=== PATIENT | female | born 1995 | race Caucasian/White ===

== ENCOUNTER → 2019-07-18 15:39 | Outpatient (CLI) | payer OTHER, MEDICAID, SELFPAY ==
[2019-07-18 16:04] LABS: Appearance Urine UA CLEAR; Bilirubin Urine UA NEGATIVE (NEGATIVE); Color Urine UA YELLOW; Glucose Urine UA NEGATIVE (Negative); Ketones Urine UA NEGATIVE (NEGATIVE); Leukocyte Esterase Urine UA NEGATIVE (NEGATIVE); Nitrite Urine UA NEGATIVE (Negative); Occult Blood Urine UA NEGATIVE (Negative); Protein Urine UA NEGATIVE (Negative); Urobilinogen Urine UA 0.2 E.U./dL (0.2)
[2019-07-18 16:04] LABS: Add Manual Diff / Slide Review NO; Basophils Absolute Auto 100 /uL (0-100); Basophils Percent Auto 0.4 % (0-2); Eosinophils Absolute Auto 100 /uL (0-450); Eosinophils Percent Auto 0.8 % (2-4); Hematocrit 37.9 % (36-46); Hemoglobin 12.9 g/dL (12.0-16.0); Lymphocytes Absolute Auto 3000 /uL (1100-4500); Lymphocytes Percent Auto 20.1 % (25-40); Mean Corpuscular Hemoglobin 29.8 PG (26-34); Mean Corpuscular Volume 87.5 fL (80-100); Monocytes Absolute Auto 1100 /uL (0-900); Monocytes Percent Auto 7.4 % (3-14); Neutrophils Absolute Auto 10700 /uL (1500-7000); Neutrophils Percent Auto 71.3 % (50-75); Platelet Count 313 X10^3/uL (150-400); Red Blood Cell Count 4.33 X10^6/uL (4.0-5.2); Red Cell Distribution Width 12.9 % (11.6-14.8); White Blood Cell Count 14.9 X10^3/uL (4.5-11.0)
[2019-07-18 17:11] LABS: Hepatitis B Surface Antigen NEGATIVE s/c (NEGATIVE); Rubella Antibody IgG 15.1 IU/mL (>15)
[2019-07-18 17:25] LABS: HIV 1 & 2 Ab/Ag 4th Gen Combo NEGATIVE (NEGATIVE); Hep C Virus Ab w/Reflex Quant NEGATIVE s/c (NEGATIVE)
[2019-07-20 20:05] LABS: RPR Screen Nonreactive (Nonreactive)
[2019-07-27 14:17] LABS: Varicella IgG Antibody < 135.00 Index (< 135.00)
== END ==
PROVIDERS: Visit Provider Specialist
DX: Z34.01 Encounter for supervision of normal first pregnancy, first trimester (principal)
CPT/HCPCS: 36415; 80055; 81003; 86787; 86803; 86850; 86900; 86901; 87086; 87389

== ENCOUNTER → 2019-09-23 09:13 | Outpatient (CLI) | payer OTHER, MEDICAID, SELFPAY ==
[2019-09-27 19:57] LABS: AFP, Serum 40.1 ng/mL; Brief History NTD NG; Calc Gestational Age 18.6; Cigarette Smoker N; Donated Egg N; Donor Egg Age N; Estriol, Free 1.42 ng/mL; Inhibin A, Dimeric 138 pg/mL; Inhibin A, MoM 0.83; Maternal Weight 158 lbs; Number of Fetuses 1; Previous Pregnancy Down Syndro N; hCG, MoM 1.32; hCG, Serum 28.6 IU/mL
== END ==
PROVIDERS: Visit Provider Specialist
DX: Z34.82 Encounter for supervision of other normal pregnancy, second trimester (principal); Z3A.18 18 weeks gestation of pregnancy
CPT/HCPCS: 82105; 82677; 84702; 86336

== ENCOUNTER → 2019-10-03 09:26 | Outpatient (CLI) | payer OTHER, MEDICAID, SELFPAY ==
--- NOTE | 2019-10-03 09:28 | DI.US.S_ITS ---
PROCEDURE: US OB >= 14 WEEKS FETUS INDICATIONS: 20 WEEK AMATOMY SCAN OUTSIDE/PRIOR DATING DATA: Last menstrual period (LMP): 05/16/19. LMP-based estimated date of delivery (WILLEM): 02/20/20. First dating scan (date and location): 07/18/19. Estimated date of delivery (WILLEM) from first dating scan: 02/26/20. TECHNIQUE: Real-time scanning was performed of the fetus, with image documentation and biometric measurements. Endovaginal scanning: No COMPARISON: [facility] [employer] [facility], , OB >= 14 WEEKS FETUS, 09/23/2019, 8:49. FINDINGS: General: A single living intrauterine gestation is present. Presentation: Breech. Placenta: Placental position is anterior, without previa. Amniotic fluid index: 17.6 cm, normal range is 5-24 cm. heart rate: 145 beats per minute. Maternal cervical canal: 4.7 cm long. Normal lower limit is 2.5 cm. biometrics: Biparietal diameter: 18 weeks 4 days Head circumference: 18 weeks 5 days Abdominal circumference: 19 weeks 2 days Femur length: 19 weeks 2 days Estimated gestational age from initial scan: 19 weeks 1 day Composite gestational age from present scan: 18 weeks 6 days Estimated weight and percentile: 277 g; 46 percentile Measurement variability for biometric dating: +/- 7 days from 14 weeks to 15 weeks 6 days gestation, +/- 10 days from 16 weeks to 21 weeks 6 days gestation, +/- 2 weeks from 22 weeks to 27 weeks 6 days gestation, +/- 3 weeks for 28 weeks gestation or later. weight reference: 4500 g or EFW >90/95% is considered macrosomia or large for gestational age. EFW <10% is small for gestational age. EFW 5% or less is considered intra-uterine growth restriction. Anatomic survey: Neuro: Ventricles are non-dilated at less than 10 mm. Cisterna magna is normal at 3-11 mm. Cerebellum is normal in size and morphology. Nuchal skin fold: Normal at less than 6 mm between 14-21 weeks gestational age. Face: Nose and lips, facial profile are normal. Spine: No evidence for spina bifida. Heart: 4-chambered heart is present, with normal ventricular outflow tracts. Diaphragm: Diaphragm is intact. Stomach: Left-sided stomach is present. Kidneys: No hydronephrosis. Normal is less than 5 mm in 2nd trimester, less than 7 mm in 3rd trimester. Cord: 3-vessel cord has orthotopic insertion. Bladder: Normal in size. Extremities: All 4 extremities identified. IMPRESSION: 1. Single living IUP redemonstrated and interval growth is normal. 2. Normal anatomic survey. Dictated by: Fantasma Koroma [facility] Interpreted: Benita Douglass MD on 10/03/2019 at 15:55 Approved by: Benita Douglass MD, PhD on 10/03/2019 at 17:18
== END ==
PROVIDERS: Referring Provider Specialist; Visit Provider Specialist
DX: Z34.82 Encounter for supervision of other normal pregnancy, second trimester (principal); Z3A.18 18 weeks gestation of pregnancy
CPT/HCPCS: 76811

== ENCOUNTER → 2019-11-16 10:40 | Outpatient (CLI) | payer OTHER, MEDICAID, SELFPAY ==
[2019-11-16 11:10] LABS: Hematocrit 39.5 % (36-46); Hemoglobin 13.3 g/dL (12.0-16.0)
== END ==
PROVIDERS: Referring Provider Specialist; Visit Provider Specialist
DX: O26.899 Other specified pregnancy related conditions, unspecified trimester (principal); Z67.91 Unspecified blood type, Rh negative
CPT/HCPCS: 36415; 85014; 85018; 86850

== ENCOUNTER → 2019-12-28 08:11 | Outpatient (CLI) | payer OTHER, MEDICAID, SELFPAY ==
[2019-12-28 11:00] LABS: GTT (PREG) 1 Hour PP 50gm Dose 124 mg/dL (76-139)
== END ==
PROVIDERS: Referring Provider Specialist; Visit Provider Specialist
DX: Z34.82 Encounter for supervision of other normal pregnancy, second trimester (principal)
CPT/HCPCS: 36415; 82950

== ENCOUNTER → 2020-01-27 08:11 | Outpatient (CLI) | payer OTHER, MEDICAID, SELFPAY ==
[2020-01-28 08:40] LABS: Strep Grp B PCR POS for Grp B Strep
== END ==
PROVIDERS: Visit Provider Specialist
DX: Z34.03 Encounter for supervision of normal first pregnancy, third trimester (principal)
CPT/HCPCS: 87653

== ENCOUNTER → 2020-02-10 15:13 | Outpatient (CLI) | payer OTHER, MEDICAID, SELFPAY ==
[2020-02-11 10:07] LABS: COVID19 Sendout NOT DETECTED (Not Detect)
== END ==
PROVIDERS: Visit Provider Physician Assistant
DX: Z01.812 Encounter for preprocedural laboratory examination (principal)
CPT/HCPCS: 87635

== ENCOUNTER 2020-02-12 18:38 | Inpatient (IN) | payer OTHER, MEDICAID, SELFPAY ==
[2020-02-12 19:12] VITALS: BP 124/62
[2020-02-12 19:26] LABS: Add Manual Diff / Slide Review NO; Basophils Absolute Auto 100 /uL (0-100); Basophils Percent Auto 0.4 % (0-2); Eosinophils Absolute Auto 200 /uL (0-450); Eosinophils Percent Auto 1.2 % (2-4); Hematocrit 37.3 % (36-46); Hemoglobin 12.8 g/dL (12.0-16.0); Lymphocytes Absolute Auto 2200 /uL (1100-4500); Lymphocytes Percent Auto 16.2 % (25-40); Mean Corpuscular HGB Conc 34.2 % (30-36); Mean Corpuscular Hemoglobin 30.7 PG (26-34); Mean Corpuscular Volume 89.8 fL (80-100); Monocytes Absolute Auto 1100 /uL (0-900); Monocytes Percent Auto 8.1 % (3-14); Neutrophils Absolute Auto 10300 /uL (1500-7000); Neutrophils Percent Auto 74.1 % (50-75); Platelet Count 247 X10^3/uL (150-400); Red Blood Cell Count 4.15 X10^6/uL (4.0-5.2); Red Cell Distribution Width 13.6 % (11.6-14.8); White Blood Cell Count 13.9 X10^3/uL (4.5-11.0)
[2020-02-12] MEDS: miSOPROStoL 25 MCG TABLET VAG (19:58)
[2020-02-13] MEDS: LACTATED RINGERS 1,000 ML 100 ML IV ×2 (08:48→15:38)
[2020-02-13] MEDS: OXYTOCIN PREMIX 30 UNIT/500 ML PLAST..BAG IV (08:49)
[2020-02-13] MEDS: PENICILLIN G POTASSIUM 5,000,000 UNIT in DEXTROSE 5% IN WATER 250 ML IV (09:06)
[2020-02-13] MEDS: ONDANSETRON 4 MG/2 ML INJ IV ×2 (10:05→15:14)
--- NOTE | 2020-02-13 10:47 | PM.OBHP.1 ---
OB HPI Date/Time Date of admission: 02/12/20 Date Patient Seen: 02/13/20 Time Patient Seen: 08:00 History of Present Condition Chief complaint: Induction : 3 Para: 0 Estimated Date of Delivery: 02/20/20 Estimated Gestational Age (weeks): 39 Narrative: Keturah Abbott is a 24 year old female admitted for induction for distance from the hospital Indications Indication for induction OB: maternal distance History of Present care: good care, initiated at week # (9), number of visits (12) and pounds weight gain (59) Dating criteria: LMP confirmed by 1st trimester US Ultrasounds: normal mid trimester US Obstetrical complications: none Medical complications: none Preadmission Labs Blood type: 0 (-) negative -: Antibody screen: negative, GBS status: positive, HBsAG: negative, HIV: negative and RPR/VDLR: negative -: Rubella: immune and Varicella: immune HCAB: negative Quad screen: Normal 1 hr GTT: 124 Prior (ies) History: Too early trimester miscarriages Evaluation Evaluation Cervical dilation (cm): 1 Cervical effacement (%): 50 station: -3 Laboratory results: Laboratory Tests 02/12/20 02/12/20 19:00 19:00 WBC 13.9 H RBC 4.15 Hgb 12.8 Hct 37.3 MCV 89.8 MCH 30.7 MCHC 34.2 RDW 13.6 Plt Count 247 Neut % (Auto) 74.1 Lymph % (Auto) 16.2 L [place] % (Auto) 8.1 Eos % (Auto) 1.2 L Baso % (Auto) 0.4 Neut # (Auto) 03836 H Lymph # (Auto) 2200 [place] # (Auto) 1100 H Eos # (Auto) 200 Baso # (Auto) 100 Blood Type O Negative Antibody Screen Negative PFSH Medical History (Updated 12/28/19 @ 10:19 by Yvette Garcia MD) Anxiety (Acute) History of miscarriage, currently (Inactive) Surgical History (Updated 07/27/19 @ 21:16 by Roxanne Benavides) Anesthesia (Resolved) S/P laparoscopic appendectomy (Acute) [place] teeth removed (Acute) Family History (Updated 07/18/19 @ 15:13 by Anitha Evans RN) Grandmother Lung cancer Social History marital status: unmarried,living together household members: significant other pets and animals: Yes (X 2 dogs) education level: college (in college finishing up Associates) occupational status: employed ([employer] ) current occupational exposures/hazards: No special beth needs: No leisure activities: exercise (walking dogs ) Smoking Status: Never smoker Meds Home Medications and Allergies Home Medications Medication Instructions Recorded Confirmed Type acetaminophen 325 mg capsule 325 mg PO ONCE PRN 07/29/19 02/12/20 History prenat.vits,jose,ued-woza-csdoa 1 tab PO DAILY 07/29/19 02/12/20 History Allergies Allergy/AdvReac Type Severity Reaction Status Date / Time No Known Drug Allergies Allergy Verified 02/03/20 09:54 Review of Systems Review of Systems Narrative: Patient denies headaches, scotomata, epigastric pain. Good movement. No leakage of fluid. ROS: Yes All systems reviewed with the patient and are negative except as otherwise documented Exam Vital Signs (past 8 hours): Blood pressure 120/65, pulse of 92, temperature 37.2? Narrative Exam Narrative: HEENT exam within normal limits. Lungs are clear to auscultation percussion. Heart is regular rate and rhythm no S3-S4 or murmurs. Abdomen is gravid with fetus vertex. Extremities without edema and nontender. Objective Labs Result Diagrams: 02/12/20 19:00 Labs: Laboratory Results - last 24 hr 02/12/20 02/12/20 19:00 19:00 WBC 13.9 H RBC 4.15 Hgb 12.8 Hct 37.3 MCV 89.8 MCH 30.7 MCHC 34.2 RDW 13.6 Plt Count 247 Neut % (Auto) 74.1 Lymph % (Auto) 16.2 L [place] % (Auto) 8.1 Eos % (Auto) 1.2 L Baso % (Auto) 0.4 Neut # (Auto) 93829 H Lymph # (Auto) 2200 [place] # (Auto) 1100 H Eos # (Auto) 200 Baso # (Auto) 100 Blood Type O Negative Antibody Screen Negative Assessment and Plan Assessment and Plan Assessment and Plan narrative: 39 week gestation at some distance from the hospital who is requesting induction. She received Prostin last night for cervical ripening with only 1 dose given due to frequency of contractions. Her cervix is still unfavorable so decision was made to place a Mcelroy bulb for continued induction, rather than to be discharged home to try again at a different time. The Mcelroy bulb was placed through the cervix and the balloon inflated with 60 cc of saline.
[2020-02-13] MEDS: PENICILLIN G POTASSIUM 3,000,000 UNIT/50 ML FROZ.PIGGY 100 UNIT IV ×3 (13:17→21:24)
[2020-02-13] MEDS: FENT 2MCG/ML BUPIV 0.125% EPI 200 MCG/100 ML PLAST..BAG 10 MCG EPIDURAL (19:05)
[2020-02-14] MEDS: LACTATED RINGERS 1,000 ML 100 ML IV (01:06)
[2020-02-14] MEDS: PENICILLIN G POTASSIUM 3,000,000 UNIT/50 ML FROZ.PIGGY 100 UNIT IV (01:08)
[2020-02-14] MEDS: FENT 2MCG/ML BUPIV 0.125% EPI 200 MCG/100 ML PLAST..BAG 10 MCG EPIDURAL (01:36)
--- NOTE | 2020-02-14 05:02 | PM.OBPRVD ---
Labor & Delivery Delivery date: 02/14/20 Intrapartal events: Prolonged Latent Phase Cervical ripening method: per Mcelroy bulb protocol (After 1 dose misoprostol) Induction method: per pitocin protocol Delivery augmentation: rupture of membranes Delivery monitor: external FHT and internal uterine Route of delivery: L&D Laceration Description: None Estimated blood loss (mL): 600 Anesthesia type: Epidural Narrative: Patient arrived on Labor and delivery for induction for distance from the hospital. She received 1 dose of Prostin and had minimal change in her cervix. A Mcelroy bulb was placed and she progressed to 5 cm dilated. Patient received IV penicillin for positive group B strep culture. She received an epidural catheter for pain control. She was started on Pitocin. She stated 5 cm for significant amount of time. A internal uterine toco was placed to better monitor contractions. Pitocin increased eventually to 25 units and then stopped for an hour and restarted. Patient then progressed well to complete and pushing. heart tones category 1 to category 2 throughout labor. Patient delivered spontaneously, over an intact perineum. The viable female infant was placed on maternal abdomen. After the cord stopped pulsating the cord was clamped, cut, and cord bloods obtained. The placenta delivered spontaneously, intact, with 3 vessels. There was slightly higher than average blood loss that responded to Pitocin bolus and uterine massage. She will be monitored for further blood loss. [place] Baby 1: gender: Female Presentation: vertex position: Right Occiput Anterior Placenta delivery description: Spontaneous cord vessel description: 3 Vessels score (1 min): 8 score (5 min): 8 Plan for aftercare: Routine care
[2020-02-14] MEDS: IBUPROFEN 600 MG TABLET PO ×2 (06:06→14:40)
[2020-02-14] MEDS: miSOPROStoL 200 MCG TABLET 800 MCG PR (06:07)
[2020-02-14] MEDS: FERROUS GLUCONATE 324 MG TABLET PO (08:44)
[2020-02-14] MEDS: PRENATAL VIT,CALC/IRON/FOLIC 1 TABLET 1 TAB PO (08:44)
[2020-02-14] MEDS: DOCUSATE 100 MG CAPSULE PO (08:44)
[2020-02-14] MEDS: DERMOPLAST SPRAY 20% 60 ML 1 SPRAY TOP (18:16)
[2020-02-15] MEDS: IBUPROFEN 600 MG TABLET PO ×2 (03:40→09:35)
[2020-02-15 06:24] LABS: Add Manual Diff / Slide Review NO; Basophils Absolute Auto 100 /uL (0-100); Basophils Percent Auto 0.5 % (0-2); Eosinophils Absolute Auto 400 /uL (0-450); Eosinophils Percent Auto 2.1 % (2-4); Hematocrit 32.8 % (36-46); Hemoglobin 11.1 g/dL (12.0-16.0); Lymphocytes Absolute Auto 2700 /uL (1100-4500); Lymphocytes Percent Auto 15.4 % (25-40); Mean Corpuscular HGB Conc 33.9 % (30-36); Mean Corpuscular Hemoglobin 30.9 PG (26-34); Mean Corpuscular Volume 90.9 fL (80-100); Monocytes Absolute Auto 1400 /uL (0-900); Monocytes Percent Auto 8.1 % (3-14); Neutrophils Absolute Auto 12900 /uL (1500-7000); Neutrophils Percent Auto 73.9 % (50-75); Platelet Count 239 X10^3/uL (150-400); Red Blood Cell Count 3.61 X10^6/uL (4.0-5.2); Red Cell Distribution Width 13.7 % (11.6-14.8); White Blood Cell Count 17.5 X10^3/uL (4.5-11.0)
[2020-02-15] MEDS: FERROUS GLUCONATE 324 MG TABLET PO (08:03)
[2020-02-15] MEDS: PRENATAL VIT,CALC/IRON/FOLIC 1 TABLET 1 TAB PO (08:03)
[2020-02-15 08:19] VITALS: BP 110/68; PULSE 87; RESP 16; TEMP 36.8
--- NOTE | 2020-02-15 09:15 | P.DS_ITS ---
Discharge Providers Provider Date of admission: 02/12/20 18:38 Discharge Date: 02/15/20 Consults: 02/12/20 18:59 Consult to Anesthesiology Urgent Comment: Consulting Provider: Anesthesiologist Reason for consultation: Epidural Has provider been notified: No 02/15/20 05:00 Consult to Biofuels Product Development Manager Routine Comment: Discharge provider: Yvette Garcia MD Summary Hospital Course Date Patient Seen: 02/15/20 Time Patient Seen: 08:00 Procedures: Prostin, Mcelroy bulb, Pitocin induction. IV penicillin for positive group B strep culture. Epidural catheter, spontaneous vaginal delivery Hospital Course: Patient was admitted for induction for distance from the hospital. She had a non favorable cervix that required Prostin followed by Mcelroy bulb to become favorable. She was started on Pitocin. She received an epidural catheter for pain control. She had a spontaneous vaginal delivery of a viable female infant weighing 8 lb. She had a hemorrhage that responded to IV Pitocin and Cytotec. She did well . She is breast-feeding without difficulty. She is urinating and ambulating well. Peripartum Data Infant Delivery Method: Natural Vaginal Laceration description: None Procedures: Prostin, Mcelroy bulb, Pitocin, Induction, IV penicillin for positive group B strep culture, epidural catheter, spontaneous vaginal deliver complications: none 1: Gender: Female Disposition of : home Discharge Diagnosis (1) Vaginal delivery: Status: Acute (2) hemorrhage: Status: Acute Status at Discharge Cognitive/behavioral status at discharge: oriented Functional status at discharge: independent ambulation Overall status at discharge: patient is progressing back to baseline Time Spent with Patient Time attestation: Total time spent providing and/or coordinating discharge services: Time spent: Less than 30 minutes Objective Labs Result Diagrams: 02/15/20 06:00 Labs: Laboratory Results - last 24 hr 02/14/20 02/15/20 13:39 06:00 WBC 17.5 H RBC 3.61 L Hgb 11.1 L Hct 32.8 L MCV 90.9 MCH 30.9 MCHC 33.9 RDW 13.7 Plt Count 239 Neut % (Auto) 73.9 Lymph % (Auto) 15.[address] [place] % (Auto) 8.1 Eos % (Auto) 2.1 Baso % (Auto) 0.5 Neut # (Auto) 04244 H Lymph # (Auto) [address] [place] # (Auto) 1400 H Eos # (Auto) 400 Baso # (Auto) 100 Maternal Bleed Negative Exam Vital Signs (past 8 hours): Blood pressure 99/52, pulse of 95, temperature 98.2?- 02/15/20 08:19 Temperature 98.3 F Pulse Rate 87 Respiratory Rate 16 Blood Pressure 110/68 Narrative Exam Narrative: Patient's abdomen is soft, nontender. Uterus is firm, at U, nontender. Mild lochia. Extremities without edema and nontender. Patient is O negative and will receive RhoGAM as the baby is Rh positive. She is rubella immune. She received Tdap in the 3rd trimester. Discharge Plan Discharge Plan Patient Disposition: Home Discharge orders & Medications Prescriptions: Continued prenat.vits,jose,vfl-cole-jnekj Tablet 1 tab PO DAILY RF: 0 acetaminophen [Tylenol] 325 mg capsule 325 mg PO ONCE PRN (Reason: Pain (Scale Score 1-3)) RF: 0 Follow up/Referrals: Yvette Garcia MD [Physician] - 1 Month (Appointment with on at 10:00 am) Diet/Activity/Treatments Diet: Regular Activity: Nothing in vagina for 6 weeks Skin/Wound/Dressing Care Report to your healthcare provider any signs of infection, such as:: chills, fever and increased pain Visit Report/Discharge Packet Instructions: DI for Labor and Delivery, Vaginal
[2020-02-15] MEDS: RHO(D) IMMUNE GLOBULIN 1,500 UNIT SYRINGE 1500 UNIT IM (09:35)
== END 2020-02-15 11:19 | disposition home or self-care (01) | DRG 560 ==
PROVIDERS: Admitting Provider Specialist; Referring Provider Specialist; Visit Provider Specialist
DX: O99.824 Streptococcus B carrier state complicating childbirth (principal); O63.1 Prolonged second stage (of labor); O72.1 Other immediate postpartum hemorrhage; Z3A.39 39 weeks gestation of pregnancy; Z37.0 Single live birth
CPT/HCPCS: 01967; 36415; 59050; 59200; 59409; 85025; 85461; 86850; 86900; 86901; G0379; J2405; J2540; J2590; J2790; S0191

== ENCOUNTER → 2021-01-02 08:40 | Outpatient (CLI) | payer OTHER, MEDICAID, SELFPAY ==
[2021-01-02 13:59] LABS: Urine N gonorrhoeae NOT DETECTED
[2021-01-02 14:02] LABS: Urine Chlamydia NOT DETECTED
== END ==
PROVIDERS: Visit Provider Specialist
DX: Z34.81 Encounter for supervision of other normal pregnancy, first trimester (principal); Z3A.08 8 weeks gestation of pregnancy
CPT/HCPCS: 87491; 87591

== ENCOUNTER → 2021-02-08 13:35 | Outpatient (CLI) | payer OTHER, MEDICAID, SELFPAY ==
[2021-02-08 14:02] LABS: Add Manual Diff / Slide Review NO; Basophils Absolute Auto 100 /uL (0-100); Basophils Percent Auto 0.5 % (0-2); Eosinophils Absolute Auto 300 /uL (0-450); Eosinophils Percent Auto 1.9 % (2-4); Hematocrit 39.4 % (36-46); Lymphocytes Absolute Auto 3200 /uL (1100-4500); Lymphocytes Percent Auto 21.4 % (25-40); Mean Corpuscular Hemoglobin 28.4 PG (26-34); Mean Corpuscular Volume 86.2 fL (80-100); Monocytes Absolute Auto 800 /uL (0-900); Monocytes Percent Auto 5.6 % (3-14); Neutrophils Absolute Auto 10600 /uL (1500-7000); Neutrophils Percent Auto 70.6 % (50-75); Platelet Count 301 X10^3/uL (150-400); Red Blood Cell Count 4.57 X10^6/uL (4.0-5.2); Red Cell Distribution Width 12.9 % (11.6-14.8); White Blood Cell Count 15.1 X10^3/uL (4.5-11.0)
[2021-02-08 15:07] LABS: Appearance Urine UA CLEAR; Bilirubin Urine UA NEGATIVE (NEGATIVE); Color Urine UA YELLOW; Glucose Urine UA NEGATIVE (Negative); Ketones Urine UA NEGATIVE (NEGATIVE); Leukocyte Esterase Urine UA NEGATIVE (NEGATIVE); Nitrite Urine UA NEGATIVE (Negative); Occult Blood Urine UA NEGATIVE (Negative); Protein Urine UA NEGATIVE (Negative); Urobilinogen Urine UA 0.2 E.U./dL (0.2)
[2021-02-08 15:54] LABS: pH Urine UA 6.5 (4.5-8.0)
[2021-02-09 08:43] LABS: RPR Screen Non Reactive (Non Reactive)
[2021-02-09 12:13] LABS: Varicella IgG Antibody <135 index (Immune >165)
[2021-02-09 12:36] LABS: Hepatitis B Surface Antigen NEGATIVE s/c (NEGATIVE); Rubella Antibody IgG 13.6 IU/mL (>15)
[2021-02-09 13:00] LABS: HIV 1 & 2 Ab/Ag 4th Gen Combo NEGATIVE (NEGATIVE); Hep C Virus Ab w/Reflex Quant NEGATIVE s/c (NEGATIVE)
== END ==
PROVIDERS: Referring Provider Specialist; Visit Provider Specialist
DX: Z34.81 Encounter for supervision of other normal pregnancy, first trimester (principal)
CPT/HCPCS: 36415; 80055; 81003; 86787; 86803; 86850; 86900; 86901; 87086; 87389

== ENCOUNTER → 2021-03-08 14:12 | Outpatient (CLI) | payer OTHER, MEDICAID, SELFPAY ==
[2021-03-11 15:31] LABS: AFP, Serum 46.3 ng/mL (.); Calc Gestational Age Ultrasound (.); Estriol, Free 1.25 ng/mL (.); Inhibin A, Dimeric 83.87 pg/mL (.); Inhibin A, MoM 0.58 (.); Maternal Ethnicity Caucasian (.); Maternal Weight 172 lbs (.); Number of Fetuses No (.); OSBR Risk 1 IN 3600 (.); Results Report (.); Test Results *Screen Negative* (.); hCG, MoM 1.09 (.); hCG, Serum 36737 mIU/mL (.)
== END ==
PROVIDERS: Referring Provider Specialist; Visit Provider Specialist
DX: Z34.82 Encounter for supervision of other normal pregnancy, second trimester (principal); Z13.71 Encounter for nonprocreative screening for genetic disease carrier status; Z3A.16 16 weeks gestation of pregnancy
CPT/HCPCS: 36415; 82105; 82677; 84702; 86336

== ENCOUNTER → 2021-04-05 11:55 | Outpatient (CLI) | payer OTHER, MEDICAID, SELFPAY ==
--- NOTE | 2021-04-05 11:56 | DI.US.S_ITS ---
PROCEDURE: US OB >= 14 WEEKS FETUS INDICATIONS: ANATOMY OUTSIDE/PRIOR DATING DATA: Last menstrual period (LMP): 11/06/2020. LMP-based estimated date of delivery (WILLEM): 08/13/2021. First dating scan (date and location): 01/02/2021. Estimated date of delivery (WILLEM) from first dating scan: 08/20/2021. TECHNIQUE: Real-time scanning was performed of the fetus, with image documentation and biometric measurements. Endovaginal scanning: Not performed COMPARISON: [facility], , OB <= 14 WK FETUS ADD GEST, 01/02/2021, 8:16. [facility], , US OB >= 14 WEEKS FETUS, 03/08/2021, 14:09. FINDINGS: General: A single living intrauterine gestation is present. Presentation: Breech Placenta: Placental position is posterior, without previa. Amniotic fluid index: 13.6 cm, normal range is 5-24 cm. Largest pocket 4.4 cm. heart rate: 153 beats per minute. Maternal cervical canal: 4.7 cm long. Normal lower limit is 2.5 cm. biometrics: Biparietal diameter: 4.9 cm, 20 weeks 5 days Head circumference: 18.3 cm, 20 weeks 5 days Abdominal circumference: 16.3 cm, 21 weeks 3 days Femur length: 3.4 cm, 20 weeks 5 days Estimated gestational age from initial scan: 20 weeks 3 days Composite gestational age from present scan: 20 weeks 6 days Estimated weight and percentile: 393 g, 77th percentile Measurement variability for biometric dating: +/- 7 days from 14 weeks to 15 weeks 6 days gestation, +/- 10 days from 16 weeks to 21 weeks 6 days gestation, +/- 2 weeks from 22 weeks to 27 weeks 6 days gestation, +/- 3 weeks for 28 weeks gestation or later. weight reference: 4500 g or EFW >90/95% is considered macrosomia or large for gestational age. EFW <10% is small for gestational age. EFW 5% or less is considered intra-uterine growth restriction. Anatomic survey: Neuro: Ventricles are non-dilated at less than 10 mm. Cisterna magna is normal at 3-11 mm. Cerebellum is normal in size and morphology. Nuchal skin fold: Normal at less than 6 mm between 14-21 weeks gestational age. Face: Nose and lips, facial profile are normal. Spine: No evidence for spina bifida. Heart: 4-chambered heart is present, with normal ventricular outflow tracts. Diaphragm: Diaphragm is intact. Stomach: Left-sided stomach is present. Kidneys: No hydronephrosis. Normal is less than 5 mm in 2nd trimester, less than 7 mm in 3rd trimester. Cord: 3-vessel cord has orthotopic insertion. Bladder: Normal in size. Extremities: All 4 extremities identified. IMPRESSION: 1. Single live intrauterine with appropriate interval growth. 2. Normal anatomic survey. Dictated by: Jese Vernon M.D. on 04/05/2021 at 15:55 Approved by: Jese Vernon M.D. on 04/05/2021 at 16:01
== END ==
PROVIDERS: Referring Provider Specialist; Visit Provider Specialist
DX: Z34.82 Encounter for supervision of other normal pregnancy, second trimester (principal); Z3A.20 20 weeks gestation of pregnancy
CPT/HCPCS: 76811

== ENCOUNTER → 2021-06-18 10:58 | Outpatient (CLI) | payer OTHER, MEDICAID, SELFPAY ==
[2021-06-18 14:41] LABS: Hematocrit 33.4 % (36-46); Hemoglobin 11.2 g/dL (12.0-16.0)
[2021-06-18 14:53] LABS: GTT (PREG) 1 Hour PP 50gm Dose 126 mg/dL (76-139)
== END ==
PROVIDERS: Referring Provider Specialist; Visit Provider Specialist
DX: Z34.02 Encounter for supervision of normal first pregnancy, second trimester (principal); Z3A.26 26 weeks gestation of pregnancy
CPT/HCPCS: 36415; 82950; 85014; 85018

== ENCOUNTER → 2021-07-24 09:21 | Outpatient (CLI) | payer OTHER, MEDICAID, SELFPAY ==
[2021-07-25 09:00] LABS: Strep Grp B PCR NEG for Grp B Strep
== END ==
PROVIDERS: Visit Provider Specialist
DX: Z3A.36 36 weeks gestation of pregnancy (principal)
CPT/HCPCS: 87653

== ENCOUNTER 2021-08-05 14:18 | Outpatient (CLI) | payer OTHER, MEDICAID, SELFPAY ==
--- NOTE | 2021-08-05 16:52 | P.TNLD_ITS ---
Visit Information Visit Information Date of evaluation: 08/05/21 Primary OB Provider: Yvette Garcia Reason for Evaluation: Yes rule out labor [facility] Medical History (Updated 08/05/21 @ 16:55 by Yvette Garcia MD) Anxiety (~2016) Blood type, Rh negative History of miscarriage, currently (~02/2019) hemorrhage (~02/14/20) SAB (spontaneous ) (~12/2018) Vaginal delivery (~02/14/20) Surgical History (Updated 12/26/20 @ 12:27 by Anitha Evans, RN) Anesthesia S/P laparoscopic appendectomy (~2009) [place] teeth removed Family History (Updated 12/26/20 @ 12:26 by Anitha Evans, RN) Grandmother Lung cancer Grandfather No problems noted. Mother Family disruption due to parent-child estrangement Father Suicide Grandmother No problems noted. Grandfather No problems noted. Sister No problems noted. Social History marital status: (Keturah has not changed her last name yet) number of children: 1 household members: significant other, family (X her 2 sisters (who live permanently with Keturah and her )) and children pets and animals: Yes (X 2 dogs) education level: college (in college finishing up [employer]) occupational status: unemployed current occupational exposures/hazards: No Previous occupational history: Die Mechanic special beth needs: No leisure activities: exercise (walking dogs ) Smoking Status: Never smoker second hand exposure: No alcohol intake: never substance use type: does not use Evaluation Evaluation Baseline heart rate: 130 Variability: Moderate (11-25) monitor accelerations: Present Monitor Decelerations: Absent Contraction Frequency (minutes): 5 Uterine Contraction Intensity: Mild Category of Tracing: Reactive Status: Category l Cervical dilation (cm): 1 Cervical effacement (%): 50 station: -3 Diagnosis, Plan/Disposition Final Diagnosis (1) False labor after 37 completed weeks of gestation: Status: Acute Plan/Disposition Plan: Patient will ambulate and come back later to check before returning to home OB Disposition: home
== END 2021-08-05 16:05 ==
LOC: LABOR 15:09 → OB 08-08 13:37
PROVIDERS: Referring Provider Obstetrics & Gynecology; Visit Provider Obstetrics & Gynecology
DX: O47.1 False labor at or after 37 completed weeks of gestation (principal); Z3A.37 37 weeks gestation of pregnancy
CPT/HCPCS: 59025; G0378; G0379

== ENCOUNTER 2021-08-14 10:53 | Inpatient (IN) | payer OTHER, MEDICAID, SELFPAY ==
[2021-08-14] MEDS: CALCIUM CARBONATE 500 MG TAB 1000 MG PO (11:39)
[2021-08-14] MEDS: LACTATED RINGERS 1,000 ML 100 ML IV ×2 (11:54→18:50)
[2021-08-14 12:05] LABS: Add Manual Diff / Slide Review NO; Basophils Absolute Auto 200 /uL (0-100); Basophils Percent Auto 1.2 % (0-2); Eosinophils Absolute Auto 100 /uL (0-450); Eosinophils Percent Auto 0.7 % (2-4); Hematocrit 31.8 % (36-46); Hemoglobin 10.5 g/dL (12.0-16.0); Lymphocytes Absolute Auto 2500 /uL (1100-4500); Lymphocytes Percent Auto 19.4 % (25-40); Mean Corpuscular HGB Conc 33.1 % (30-36); Mean Corpuscular Hemoglobin 27.1 PG (26-34); Monocytes Absolute Auto 1100 /uL (0-900); Monocytes Percent Auto 8.4 % (3-14); Neutrophils Absolute Auto 9000 /uL (1500-7000); Neutrophils Percent Auto 70.3 % (50-75); Platelet Count 258 X10^3/uL (150-400); Red Blood Cell Count 3.87 X10^6/uL (4.0-5.2); Red Cell Distribution Width 14.9 % (11.6-14.8); White Blood Cell Count 12.8 X10^3/uL (4.5-11.0)
[2021-08-14] MEDS: OXYTOCIN PREMIX 30 UNIT/500 ML PLAST..BAG IV (12:06)
[2021-08-14 12:38] LABS: COVID19 -Nasal RAPID POSITIVE (Negative)
[2021-08-14 13:35] VITALS: BP 124/74
[2021-08-14] MEDS: FENT 2MCG/ML BUPIV 0.125% EPI 200 MCG/100 ML PLAST..BAG 8 MCG EPIDURAL (18:48)
--- NOTE | 2021-08-14 18:48 | PM.OBPNLAB ---
Date/Time Date Patient Seen: 08/14/21 Time Patient Seen: 17:20 Pain Control Pain control: tolerating well Comments: Requesting epidural Pelvic Exam Dilation (cm): 3 Effacement (%): 75 station: -1 Amniotic membrane status: Intact Comments: OK for AR placement Contractions Contractions on admission: none Monitor mode: External Pitocin rate (mU/min): 5 Contraction frequency (min): 3 Contraction duration (min): 1 Contraction pattern: Regular Contraction phase: Resting Contraction intensity: Moderate Status status: Category l Heart Rate Baseline: 135 Monitor Accelerations: Present Monitor Decelerations: Episodic (Mild variables) Monitor Variability: Moderate Assessment and Plan Assessment: induction ongoing Plan: continuous present management Comments: OK for AR placement.
[2021-08-15] MEDS: FENT 2MCG/ML BUPIV 0.125% EPI 200 MCG/100 ML PLAST..BAG 8 MCG EPIDURAL (04:44)
[2021-08-15] MEDS: LACTATED RINGERS 1,000 ML 100 ML IV ×2 (04:45→06:29)
--- NOTE | 2021-08-15 12:41 | PM.OBHP.1 ---
OB HPI Date/Time Date of admission: 08/14/21 Date Patient Seen: 08/15/21 Time Patient Seen: 08:00 History of Present Condition Chief complaint: EVAL OF LABOR : 4 Para: 1 Estimated Date of Delivery: 08/10/21 Estimated Gestational Age (weeks): 39 Narrative: Keturah Abbott is a 26 year old female admitted on 08/14/2021 for induction for distance from the hospital and child welfare caseworker issues Indications Indication for induction OB: maternal distance History of Present care: good care, initiated at week # (7), number of visits (11) and pounds weight gain (42) Dating criteria: based on 1st trimester US only Ultrasounds: normal mid trimester US Obstetrical complications: none Medical complications: none Preadmission Labs Blood type: 0 (-) negative -: Antibody screen: negative, GBS status: negative, HBsAG: negative, HIV: negative and RPR/VDLR: negative -: Chlamydia screen: not detected and Gonorrhea screen: not detected -: Rubella: not immune and Varicella: not immune HCAB: negative Quad screen: Normal 1 hr GTT: 126 Prior (ies) History: 02/14/2020 39 week gestation 8 oz female vaginal delivery Evaluation Evaluation Baseline heart rate: 130 Variability: Moderate (11-25) monitor accelerations: Present Monitor Decelerations: Absent Contraction Frequency (minutes): 4 Uterine Contraction Intensity: Moderate Category of Tracing: Reactive Status: Category l Dilation (cm): 5 Effacement (%): 80 station: -2 Position of cervix: posterior Consistency: soft [facility] Medical History (Updated 08/07/21 @ 09:43 by Yvette Garcia MD) Anxiety (~2016) Blood type, Rh negative History of miscarriage, currently (~02/2019) hemorrhage (~02/14/20) SAB (spontaneous ) (~12/2018) Vaginal delivery (~02/14/20) Surgical History (Updated 12/26/20 @ 12:27 by Anitha Evans RN) Anesthesia S/P laparoscopic appendectomy (~2009) [place] teeth removed Family History (Updated 12/26/20 @ 12:26 by Anitha Evans RN) Grandmother Lung cancer Grandfather No problems noted. Mother Family disruption due to parent-child estrangement Father Suicide Grandmother No problems noted. Grandfather No problems noted. Sister No problems noted. Social History marital status: (Keturah has not changed her last name yet) number of children: 1 household members: significant other, family (X her 2 sisters (who live permanently with Keturah and her )) and children pets and animals: Yes (X 2 dogs) education level: college (in college finishing up [employer]) occupational status: unemployed current occupational exposures/hazards: No Previous occupational history: Program Planner special beth needs: No leisure activities: exercise (walking dogs ) Smoking Status: Never smoker second hand exposure: No alcohol intake: never substance use type: does not use Meds Home Medications and Allergies Home Medications Medication Instructions Recorded Confirmed Type prenat.vits,jose,qho-maog-tdrpb 1 tab PO DAILY 07/29/19 07/31/21 History omeprazole 40 mg capsule,delayed 40 mg PO DAILY #30 cap 05/31/21 07/31/21 Rx release Allergies Allergy/AdvReac Type Severity Reaction Status Date / Time No Known Drug Allergies Allergy Verified 12/26/20 12:13 Review of Systems Review of Systems Narrative: Patient denies headaches, scotomata, epigastric pain. No, no shortness of breath, no fevers. Patient was given both COVID vaccines in the booster. However patient did test positive for COVID on admission. OB Exam Narrative Exam Narrative: HEENT exam within normal limits. Lungs are clear to auscultation percussion. Heart is regular rate and rhythm no S3-S4 murmurs. Abdomen is gravid. Fetus is vertex. Extremities without edema and nontender. Objective Labs Result Diagrams: 08/14/21 11:35 Labs: Laboratory Results - last 24 hr 08/14/21 11:35 Blood Type O Negative Antibody Screen Negative Assessment and Plan Assessment and Plan Assessment and Plan narrative: 39 week gestation admitted yesterday for induction by Pitocin. Patient was delayed being admitted due to be dizziness of the unit. On admission the patient was found to be COVID positive despite being vaccinated and no symptoms. Pitocin was initially started but then had to be stopped due to staffing issues. Patient did receive an epidural catheter for pain control prior to stopping the Pitocin. Was restarted on Pitocin this morning and AROM for clear fluid. Anticipate vaginal delivery.
--- NOTE | 2021-08-15 14:08 | P.PCNOB_ITS ---
Labor & Delivery Delivery date: 08/15/21 Intrapartal Events: None Cervical ripening method: none Induction method: per pitocin protocol Delivery augmentation: rupture of membranes Delivery monitor: external FHT and external uterine Route of delivery: L&D Laceration Description: None Estimated blood loss (mL): 200 Anesthesia Type: Epidural Narrative: Patient arrived on Labor and delivery for induction for distance from the hospital in child welfare caseworker reasons. There was a delay in starting the Pitocin due to staffing. Patient received an epidural catheter for pain control. The Pitocin had to be stopped due to staffing issues. When staff was available the Pitocin was restarted and she was AROM for clear fluid. Patient progressed to complete dilation. heart tones category 1 to category 2 throughout labor. The patient delivered spontaneously, over an intact perineum. The viable male was placed on maternal abdomen. After the cord stopped pulsating the cord was clamped, cut, and cord bloods obtained. The placenta delivered spontaneously, intact, with 3 vessels. There were no cervical, vaginal, or perineal tears. [place] Baby 1: gender: Male Presentation: vertex Position: Left Occiput Posterior Placenta delivery description: Spontaneous Cord Vessel Description: 3 Vessels score (1 min): 8 score (5 min): 8 weight: 10 lb 2 oz Plan for aftercare: Routine care
[2021-08-15] MEDS: ACETAMINOPHEN 325 MG TABLET 650 MG PO (19:52)
[2021-08-15] MEDS: IBUPROFEN 600 MG TABLET PO (19:52)
[2021-08-15] MEDS: DERMOPLAST SPRAY 20% 60 ML 1 SPRAY TOP (20:35)
[2021-08-16] MEDS: ACETAMINOPHEN 325 MG TABLET 650 MG PO (02:01)
[2021-08-16] MEDS: IBUPROFEN 600 MG TABLET PO (02:01)
[2021-08-16 07:01] LABS: Add Manual Diff / Slide Review NO; Basophils Absolute Auto 100 /uL (0-100); Basophils Percent Auto 0.5 % (0-2); Eosinophils Absolute Auto 200 /uL (0-450); Eosinophils Percent Auto 1.2 % (2-4); Hematocrit 27.4 % (36-46); Lymphocytes Absolute Auto 2700 /uL (1100-4500); Lymphocytes Percent Auto 19.3 % (25-40); Mean Corpuscular HGB Conc 32.9 % (30-36); Mean Corpuscular Hemoglobin 27.1 PG (26-34); Mean Corpuscular Volume 82.3 fL (80-100); Monocytes Absolute Auto 1600 /uL (0-900); Monocytes Percent Auto 11.1 % (3-14); Neutrophils Absolute Auto 9500 /uL (1500-7000); Neutrophils Percent Auto 67.9 % (50-75); Platelet Count 238 X10^3/uL (150-400); Red Blood Cell Count 3.33 X10^6/uL (4.0-5.2); Red Cell Distribution Width 14.9 % (11.6-14.8)
--- NOTE | 2021-08-16 08:12 | PM.OBDS.1 ---
Discharge Providers Provider Date of admission: 08/14/21 10:53 Discharge Date: 08/16/21 Primary care physician: Doctor Jurgen MD Consults: 08/14/21 11:19 Consult to Anesthesiology Urgent Comment: Consulting Provider: Anesthesiologist Reason for consultation: Epidural Has provider been notified: No 08/16/21 14:06 Consult to Research And Development Director Routine Comment: Discharge provider: Yvette Garcia MD Summary Hospital Course Date Patient Seen: 08/16/21 Time Patient Seen: 08:12 Diagnoses: 39 week gestation with spontaneous vaginal delivery Hospital Course: Patient arrived on Labor and delivery for induction for 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 She received Pitocin for induction. She received an epidural catheter for pain control. She had a spontaneous vaginal delivery of a viable male infant weighing 10 lb 2 oz. baby is well. She is urinating and ambulating well. No headaches, scotomata, epigastric pain. Bleeding is moderate. Peripartum Data Infant Delivery Method: Natural Vaginal Laceration Description: None Procedures: Pitocin induction, epidural catheter, spontaneous vaginal delivery complications: none Parker 1: Gender: Male Discharge Diagnosis (1) Vaginal delivery: Status: Acute Status at Discharge Cognitive/behavioral status at discharge: oriented Functional status at discharge: independent ambulation Overall status at discharge: patient is progressing back to baseline Time Spent with Patient Time attestation: Total time spent providing and/or coordinating discharge services: Time spent: Less than 30 minutes Objective Labs Result Diagrams: 08/16/21 06:44 Labs: Laboratory Results - last 24 hr 08/16/21 06:44 WBC 14.0 H RBC 3.33 L Hgb 9.0 L Hct 27.4 L MCV 82.3 MCH 27.1 MCHC 32.9 RDW 14.9 H Plt Count 238 Neut % (Auto) 67.9 Lymph % (Auto) 19.3 L [place] % (Auto) 11.1 Eos % (Auto) 1.2 L Baso % (Auto) 0.5 Neut # (Auto) 9500 H Lymph # (Auto) 2700 [place] # (Auto) 1600 H Eos # (Auto) 200 Baso # (Auto) 100 Exam Vital Signs (past 8 hours): Blood pressure 111/68, pulse of 80, temperature 97.2? Narrative Exam Narrative: Abdomen is soft, nontender. Uterus is firm, at U, nontender. Mild lochia. Perineum is intact. Extremities without edema and nontender. Patient is B negative, baby is Rh positive so patient will receive RhoGAM prior to discharge. Rubella nonimmune and received Tdap in the 3rd trimester. Discharge Plan Discharge Plan Patient Disposition: Home Provider Discharge Comment: Patient is also to take [id number]-[id number] iron at a different time than her vitamins due to anemia Discharge orders & Medications Prescriptions: Continued prenat.vits,jose,vlj-dwfz-ytiju Tablet 1 tab PO DAILY 0RF omeprazole 40 mg capsule,delayed release(DR/EC) 40 mg PO DAILY Qty: 30 0RF Follow up/Referrals: Yvette Garcia MD [Physician] - 6 Weeks Doctor Seaman MD [Primary Care Provider] - Diet/Activity/Treatments Diet: Regular Activity: Nothing in vagina until exam Skin/Wound/Dressing Care Report to your healthcare provider any signs of infection, such as:: chills, fever and increased pain Discharge Data Primary Care Provider: Doctor Jurgen
[2021-08-16 10:39] VITALS: BP 111/68; PULSE 78; RESP 16; TEMP 36.2
[2021-08-16] MEDS: RHO(D) IMMUNE GLOBULIN 1,500 UNIT SYRINGE 1500 UNIT IM (10:48)
== END 2021-08-16 11:15 | disposition home or self-care (01) | DRG 560 ==
PROVIDERS: Specialist; Admitting Provider Obstetrics & Gynecology; Referring Provider Obstetrics & Gynecology; Visit Provider Obstetrics & Gynecology
DX: O98.52 Other viral diseases complicating childbirth (principal); U07.1 COVID-19; Z3A.39 39 weeks gestation of pregnancy; Z37.0 Single live birth
CPT/HCPCS: 01967; 36415; 59050; 59409; 85025; 85461; 86850; 86900; 86901; 87635; C9803; G0379; J2590; J2790